=== PATIENT | female | born 1990 | race Hispanic/Latino ===

== ENCOUNTER 2016-07-14 21:12 | Outpatient (CLI) | payer OTHER ==
[~2016-07-14] VITALS: Ht 152.4 cm; Wt 75.0 kg
[2016-07-14 21:25] VITALS: BP 118/68
--- NOTE | 2016-07-15 01:25 | IPNPDOC ---
Text Note Date of Service The patient was seen on 07/15/16 at 01:24. NOTE Subjective: Aminah See is a 26yo with a SIUP at approx. 30wk gestation who presents to triage s/p fall. She states she was doing household activities and lost her balance, falling on her bottom. She states she has pelvic pain, but she has had this pain (right over the pubic bone) nearly since her began and she had a similar pain with her previous - she was diagnosed with pubic diastasis. She states she never hit her abdomen. She was reassured by movement and did not feel the need to come in, but when she called the provider line I instructed her to come in for evaluation to confirm all was well. ROS Admits: gross movement Denies: Vaginal bleeding/ loss of fluid, abdominal pain, bruising Objective: Vitals wnl NST: reassuring for gestational age [place]: no CTXs or uterine irritability Physical: Gen: well-developed and well-nourished in NAD. Mental: A&Ox3 Abdomen: Soft NT/ND without rebound or guarding Extremity: no edema in LE bilat. Assessment: Aminah See is a 26yo with a SIUP at approx. 30wk gestation with no evidence of abruption. Reassuring NST without CTXs or uterine irritability. Vitals stable with benign physical exam. Plan: -Tylenol 1000 mg q8hr for pain -has routine OB visit 24 July, patient encouraged to keep appointment -Return precautions given for bleeding, fluid loss, contractions, decreased movement, and abdominal pain. Dr. Farhad Melgar MD [place], [facility] Vital Signs Date Time Temp Pulse Resp B/P Pulse Ox O2 Delivery O2 Flow Rate FiO2 07/14/16 21:25 98.2 113 118/68 FARHAD MELGAR MD Jul 15, 2016 01:25
== END 2016-07-14 23:25 | disposition home or self-care (01) ==
LOC: M LDO 21:12
PROVIDERS: ATTEND Obstetrics & Gynecology
DX: O26.893 Other specified pregnancy related conditions, third trimester (principal); R10.2 Pelvic and perineal pain; O99.89 Other specified diseases and conditions complicating pregnancy, childbirth and the puerperium; M62.059 Separation of muscle (nontraumatic), unspecified thigh; Z3A.30 30 weeks gestation of pregnancy

== ENCOUNTER 2016-09-19 13:00 | Inpatient (IN) | payer OTHER ==
[2016-09-19] VITALS (8 sets, daily range): BP systolic 111–137; BP diastolic 62–73
[~2016-09-19] VITALS: Ht 154.9 cm; Wt 79.0 kg
[2016-09-19 16:13] LABS: MEAN CORPUSCULAR HEMOGLOBIN 21.3 pg (27.0-33.0); MEAN CORPUSCULAR HGB CONC 30.7 g/dl (32.0-36.5); MEAN CORPUSCULAR VOLUME 69.4 fl (80.0-96.0); RED CELL DISTRIBUTION WIDTH 17.9 % (11.5-14.5); WHITE BLOOD COUNT 12.6 K/mm3 (4.0-10.0)
[2016-09-19] MEDS ORDERED: LIDOCAINE 1% MDV INJ 50 ML VIAL As Ordered ONE (17:17)
[2016-09-19] MEDS ORDERED: OXYTOCIN DRIP 30 UNITS in APPROPRIATE DILUENT 1 EA IV SCH (17:40)
[2016-09-19] MEDS ORDERED: RHOGAM 300 MCG (1500 IU) INJ (J2790) IM SCH (17:45)
[2016-09-19] MEDS ORDERED: IBUPROFEN 800 MG TAB PO PRN (17:45)
[2016-09-19] MEDS ORDERED: METHYLERGONOVINE MALEATE 0.2 MG/ML VIAL (J2210) IM PRN (17:45)
[2016-09-19] MEDS ORDERED: PROMETHAZINE 25 MG TAB PO PRN (17:45)
[2016-09-19] MEDS ORDERED: DOCUSATE SODIUM 100 MG CAP PO PRN (17:45)
[2016-09-19] MEDS ORDERED: ACETAMINOPHEN 500 MG TAB PO PRN (17:45)
[2016-09-19] MEDS ORDERED: ONDANSETRON 4MG/2ML VIAL (J2405) IV PRN (17:45)
[2016-09-19] MEDS ORDERED: MEASLES,MUMPS,RUBELLA VACCINE INJ (MMR-II) (90707) SC SCH (17:45)
[2016-09-19] MEDS ORDERED: LIDOCAINE 1% MDV INJ 50 ML VIAL INFIL ONE (17:45)
[2016-09-19] MEDS ORDERED: DIBUCAINE 1% OINTMENT 30GM TOP PRN (17:45)
[2016-09-20 06:27] VITALS: BP 113/72
[2016-09-20] MEDS: PRENATAL VITAMIN TAB PO SCH (08:35)
[2016-09-20 17:21] VITALS: BP 115/61
[2016-09-21 06:04] VITALS: BP 118/56
[2016-09-21] MEDS: PRENATAL VITAMIN TAB PO SCH (07:51)
[2016-09-21] MEDS ORDERED: IBUP-1114 PO (11:30)
[2016-09-21] MEDS ORDERED: COLA100C3 PO (11:30)
[2016-09-21] MEDS ORDERED: PRENTAB9 PO (11:30)
[2016-09-21] MEDS ORDERED: ACET50TA PO (11:30)
[2016-09-21] MEDS ORDERED: DIBU1OI TOP (11:30)
== END 2016-09-21 14:51 | disposition home or self-care (01) | DRG 775 ==
LOC: M LDO 13:00 → M LDI 15:38 → M OBS 19:48
PROVIDERS: ADMIT Obstetrics & Gynecology; ATTEND Obstetrics & Gynecology
PROC: 10E0XZZ Delivery of Products of Conception, External Approach (ICD-10-PCS; principal; 2016-09-19)
PROC: 0HQ9XZZ Repair Perineum Skin, External Approach (ICD-10-PCS; 2016-09-19)
DX: O70.0 First degree perineal laceration during delivery (principal); Z37.0 Single live birth; Z3A.39 39 weeks gestation of pregnancy